=== PATIENT | female | born 1985 | race Caucasian/White ===

== ENCOUNTER 2017-11-06 08:08 | Day surgery (SDC) | payer MEDICAID ==
[2017-11-05 13:39] LABS: BASOPHIL % 0.2 % (0-2); PLATELET COUNT 361 x10^3mcL (130-400); RED CELL DISTRIBUTION WIDTH 14.6 % (11.5-14.5)
[2017-11-05 13:55] LABS: ALBUMIN 3.8 g/dL (3.4-5.0); ALKALINE PHOSPHATASE 55 U/L (46-116); ALT/SGPT 15 U/L (14-59); AST/SGOT 21 U/L (15-37); BILIRUBIN TOTAL 0.33 mg/dL (0.20-1.00); CALCIUM 9.2 mg/dL (8.5-10.1); CARBON DIOXIDE 26.2 mmol/L (21-32); CHLORIDE SERUM 103 mmol/L (98-107); CREATININE SERUM 0.8 mg/dL (0.6-1.0); GFR1 > 60 mL/min; GLUCOSE SERUM 120 mg/dL (74-106); POTASSIUM SERUM 3.6 mmol/L (3.5-5.1); SODIUM SERUM 141 mmol/L (136-145)
[2017-11-05 13:58] LABS: TOTAL PROTEIN, SERUM 8.3 g/dL (6.4-8.2)
[~2017-11-06] VITALS: Ht 152.4 cm; Wt 86.2 kg
[2017-11-06 08:39] VITALS: BP 114/63
== END 2017-11-06 10:25 | disposition home or self-care (01) ==
LOC: DS 08:08 → MA 10:00 → DS 10:00 → OR 12:00
PROVIDERS: Surgery
DX: D24.2 Benign neoplasm of left breast (principal); Z53.8 Procedure and treatment not carried out for other reasons
CPT/HCPCS: J2001

== ENCOUNTER 2017-11-10 08:18 | Day surgery (SDC) | payer MEDICAID ==
[~2017-11-10] VITALS: Ht 152.4 cm; Wt 85.7 kg
[2017-11-10 08:28] VITALS: BP 125/70
[2017-11-10 15:06] VITALS: BP 116/76
== END 2017-11-10 15:05 | disposition home or self-care (01) ==
LOC: DS 08:18 → OR 12:00 → DS 15:05
PROVIDERS: Surgery
PROC: 0HBU0ZX Excision of Left Breast, Open Approach, Diagnostic (ICD-10-PCS; principal; 2017-11-10 12:00)
DX: C50.012 Malignant neoplasm of nipple and areola, left female breast (principal); Z17.0 Estrogen receptor positive status [ER+]; Z68.43 Body mass index [BMI] 50.0-59.9, adult
CPT/HCPCS: 88344; 88361; J0690; J1170; J2001; J2405; J3010; J3490